=== PATIENT | female | born 1945 | race Caucasian/White ===

== ENCOUNTER 2016-10-23 13:13 | Outpatient (CLI) | payer MEDICARE, OTHER ==
[2016-10-23 14:17] LABS: eGFR (African) > 60; eGFR (Non-African) > 60
== END 2016-10-23 13:14 ==
LOC: LAB 13:13
PROVIDERS: ATTEND Clinical Nurse Specialist Medical-Surgical
DX: M81.0 Age-related osteoporosis without current pathological fracture (principal); Z87.310 Personal history of (healed) osteoporosis fracture; R26.9 Unspecified abnormalities of gait and mobility
CPT/HCPCS: 36415; 80053; 82306

== ENCOUNTER 2017-01-31 09:00 | Outpatient (CLI) | payer MEDICARE, OTHER | END 2017-01-31 09:30 | LOC: RAD 09:00 | PROVIDERS: ATTEND Family Medicine | DX: M48.06 Spinal stenosis, lumbar region (principal) | CPT/HCPCS: 72148 ==

== ENCOUNTER 2017-02-19 12:18 | Outpatient (CLI) | payer MEDICARE, OTHER ==
[~2017-02-19 12:18] MED LIST: 0.9 % SODIUM CHLORIDE PF 10 ML VIAL IJ ONE; Lidocaine 1% 5ml(IM or SUTURE)(PAIN CLINIC) ONE; TRIAMCINOLONE ACETONID 40MG/ML VIAL ONE
--- NOTE | 2017-02-22 12:51 | CAUDAL ESI WITH FLUORO ---
SUBJECTIVE: Aranza has had an L5 laminectomy done as I look at her images under x-ray. I am going to plan to place a caudal epidural steroid injection. PROCEDURE: Caudal epidural steroid injection. DESCRIPTION OF PROCEDURE: The risks and benefits of a caudal epidural steroid injection were explained to the patient, including the risk of infection, bleeding, nerve injury, worsened pain, failure to relieve pain, spinal headache or steroid exposure risks, including hyperglycemia, hypertension, osteoporosis, and increased infectious risks. The patient understood the risks and agreed to proceed. The patient was placed on the fluoroscopy table in the prone position with a pillow underneath the abdomen. The caudal area was cleaned. AP and lateral fluoroscopic views were obtained, identifying the sacrum and sacral hiatus. The caudal epidural space was accessed from a percutaneous approach at the sacral hiatus with a 20-gauge 1- inch needle. On entering the caudal epidural space, it was verified that there was no aspiration of blood or CSF or urine. Furthermore, the needle tip location was verified with lateral and AP fluoroscopic views. Omnipaque 240 myelogram dye was injected through the needle. The distribution of the dye was noted to be within the desired distribution within the caudal epidural space. The patient did report some reproduction of pain symptoms; this reproduction of symptoms was short-lived. At this point, triamcinolone acetate and 1% lidocaine was injected into the caudal epidural space. The stylette was replaced in the needle and the needle was subsequently removed from the back. The patient tolerated the procedure without adverse sequelae. The sacral area was cleaned and a bandage was applied over the injection site. The patient was then monitored for 20 minutes following the procedure, during which time the vital signs remained stable and no adverse sequelae were noted or reported. The patient was discharged home with a route delivery service driver and was in good condition on discharge. ASSESSMENT: 1. Severe L4-L5 spinal stenosis. 2. Lumbosacral radiculitis. PLAN: Caudal epidural steroid injection. FOLLOW UP: Patient is to call for complications or worsened pain. cc: Dr. Emiliano SCALES
--- NOTE | 2017-02-22 14:11 | HISTORY AND PHYSICAL REPORT ---
REFERRING PHYSICIAN: Dr. Emiliano Mendosa Dear Emiliano: HISTORY OF PRESENT ILLNESS: I had the opportunity of seeing Aranza Ghosh today as an outpatient at [facility]. As you are aware, Aranza is a very nice 72-year-old white female with some mild dementia who presents with a chief complaint of back and bilateral leg pain consistent with neurogenic claudication. She was apparently treated by my partner, Vladimir Cárdenas, 2 years ago with epidural injections and subsequently saw Dr. Zhao and surgical decompression was elected against for reasons of worsening dementia and her more advanced age. She says that she did well for a while following the injection, although Dr. Cárdenas's note seems to describe that she had not gotten a lot of improvement after 2 injections at the L4-L5 level. At this point, her MRI supports severe spinal stenosis at L4-L5 and I am planning on placing a caudal epidural steroid injection today under fluoroscopy and see how she does. PAST MEDICAL HISTORY: 1. Vision problems. 2. Hypertension. 3. Arthritis. 4. Dementia. 5. Urinary frequency. PAST SURGICAL HISTORY: 1. Lumbar laminectomy. 2. Lumbar diskectomy. 3. Surgery for an arm fracture. The patient does not report any other surgeries. CURRENT MEDICATION LIST: 1. Benazepril 10 mg daily. 2. HCTZ 12.5 mg daily. 3. Donepezil 10 mg daily. 4. Amlodipine 2.5 mg daily. 5. Aleve twice daily. ALLERGIES: No known drug allergies. SOCIAL HISTORY: Patient denies tobacco and alcohol use. Reports that she has had recreational drug use in the past. Patient has been for 51 years. She lives with her . She has 5 children. 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 She went to school through the 12th grade. She is not currently employed. She retired in 2008. FAMILY HISTORY: Positive for heart attack in patient's father. Diabetes in patient's sibling. REVIEW OF SYSTEMS: Positive for weight loss. Treatment for the current pain problems include back surgery and injections by Dr. Vladimir Cárdenas a couple of years ago which provided very little pain relief. PHYSICAL EXAMINATION: General: She is a thin white female in no apparent distress. She is awake and alert and delightful to talk to. Vital Signs: BP: 142/60, P: 74, R: 18, oxygen saturation is 93% on room air. HEENT: Pupils are equal, round, and reactive to light and accommodation. Extraocular movements intact. No facial droop. Neck: There is full range of motion of the cervical spine. No evidence of adenopathy. Thyroid is nontender, no enlarged. Carotids are without bruits. Chest: Clear to auscultation bilaterally. Normal. Chest excursion. Heart: Regular rate and rhythm without murmur. Abdomen: Benign. Normoactive bowel sounds. Motor/sensory: Intact in the upper and lower extremities. Moves all extremities freely. Back: There are normal cervical, thoracic and lumbar curvatures. There are negative sacroiliac joint findings bilaterally. No evidence of pain or tenderness over the facet joints. Negative piriformis bilaterally. Negative straight leg raise. No evidence of dermatomal weakness or numbness in the lower extremities. Bilateral negative femoral nerve stretch. Patellar tendons are 2+ and equal bilaterally. ASSESSMENT: Severe L4-L5 spinal stenosis. PLAN: Plan for a caudal epidural steroid injection under fluoroscopy. She will follow up next month. Dr. Mendosa, thank you for the opportunity to take part in the care of this nice lady. I appreciate the opportunity to take part in the care of your patients. cc: Dr. Emiliano SCALES
== END 2017-02-19 12:20 ==
LOC: OUT 12:18
PROVIDERS: ATTEND Anesthesiology Pain Medicine
DX: M48.06 Spinal stenosis, lumbar region (principal); M54.17 Radiculopathy, lumbosacral region
CPT/HCPCS: J3301; Q9966; 62323; 99213; G0463

== ENCOUNTER 2017-04-19 09:03 | Outpatient (CLI) | payer MEDICARE, OTHER ==
[~2017-04-19 09:03] MED LIST changes: -0.9 % SODIUM CHLORIDE PF 10 ML VIAL IJ ONE; +BUPIVACAINE HCL/PF 2.5 MG/ML 10ML VIAL IV ONE
--- NOTE | 2017-04-19 10:46 | LUMBAR TFESI ---
SUBJECTIVE: Ms. Ghosh follows up with me today. She continues with some left-sided leg pain. Her says she is better, however, her symptoms are still present with pain down the left leg. She has left L4 radiculitis. She did well with previous L4 transforaminal injection and not as well with a caudal epidural steroid injection. At this point, I am going to recommend repeating a left L4 transforaminal injection today under fluoroscopy. I will have this nice lady follow up in about 8 weeks. PROCEDURE: Left L4 transforaminal epidural steroid injection with fluoroscopic guidance. DESCRIPTION OF PROCEDURE: The risks and benefits were discussed with the patient including the risks of infection, bleeding, nerve injury, and headache, as well as the risks of steroid exposure causing hyperglycemia, hypertension, osteoporosis, or increased infectious risk. The patient understood these risks and agreed to proceed. Consent was obtained. The patient was placed in the prone position on the fluoroscopy table with a pillow underneath the abdomen to afford anterior flexion of the lumbar spine. The low back was cleaned and a sterile drape was applied. AP, lateral and oblique fluoroscopic views were obtained identifying the L4 vertebral body and L4 transverse process. An oblique view of the transverse process and pedicles was obtained. A 23-gauge, Quincke tip 3.5 spinal needle was advanced under direct-beam (barrel view) fluoroscopic guidance until the tip contacted the superior-most aspect of the left L5 superior articulating process. The needle was then directed superiorly and medially a few millimeters towards the intervertebral foramen. A lateral fluoroscopic view was obtained and the needle was advanced into the inferior/anterior aspect of the L4 neural foramen (L4-L5 intervertebral foramen) epidural space. It was verified that there was no aspiration of CSF or blood. Omnipaque 240 myelogram dye was injected through the needle. The dye was noted to course in the desired distribution within the lumbar foramen epidural space. The medications were injected into the epidural space. The stylet was replaced in the needle and the needle was removed from the back. The patient tolerated the procedure well. The back was cleaned and a bandage was applied over the injection site. The patient was monitored for 20 minutes following the procedure. During this time the vital signs remained stable and the patient experienced no adverse sequelae. The patient was discharged home in good condition. ASSESSMENT: Lumbar intervertebral disk disorder with radicular pain. PLAN: Left L4 transforaminal epidural steroid injection with fluoroscopic guidance. FOLLOWUP: Return to clinic if problems develop or worsen. Follow up in [address] Mendosa, thank you again for allowing me to take part in the care of this nice lady. cc: Dr. Emiliano SCALES
== END 2017-04-19 09:04 ==
LOC: OUT 09:03
PROVIDERS: ATTEND Anesthesiology Pain Medicine
DX: M51.86 Other intervertebral disc disorders, lumbar region (principal); M54.16 Radiculopathy, lumbar region
CPT/HCPCS: J3301; J3490; 64483; 99213; G0463

== ENCOUNTER 2017-06-29 13:26 | Outpatient (CLI) | payer MEDICARE, OTHER ==
[~2017-06-29 13:26] MED LIST changes: +LIDOCAINE HCL/PF 2% 100 MG/5 ML VIAL IJ ONE; -Lidocaine 1% 5ml(IM or SUTURE)(PAIN CLINIC) ONE
--- NOTE | 2017-06-30 13:43 | LUMBAR TFESI ---
SUBJECTIVE: Ms. Ghosh follows up with me today with recurrent L4 radiculitis. I gave her an injection in April and she said that she got significant relief. Her tells me that the symptoms are returning primarily when she ambulates. She complains of left leg pain. She has multi-level disk disease and a large disk protrusion at L3-L4, L4-L5, and L5-S1. She has pain over the L4 dermatome today on the left side. Plan to repeat left L4 transforaminal injection under fluoroscopic guidance for left sided disk protrusion with radiculitis. PROCEDURE: Left L4 lumbar transforaminal epidural steroid injection with fluoroscopic guidance. DESCRIPTION OF PROCEDURE: The risks and benefits were discussed with the pt. including the risks of infection, bleeding, nerve injury, and headache, as well as the risks of steroid exposure causing hyperglycemia, hypertension, osteoporosis, or increased infectious risk. The patient understood these risks and agreed to proceed. Consent was obtained. The patient was placed in the prone position on the fluoroscopy table with a pillow underneath the abdomen to afford anterior flexion of the lumbar spine. The low back was cleaned and a sterile drape was applied. AP, lateral and oblique fluoroscopic views were obtained identifying the [id number] body and L4 transverse process. An oblique view of the transverse process and pedicles was obtained. A 23-gauge Quincke tip, 3.5 spinal needle was advanced under direct-beam (barrel view) fluoroscopic guidance until the tip contacted the superior-most aspect of the left L4 superior articulating process. The needle was then directed superiorly and medially a few millimeters towards the intervertebral foramen. A lateral fluoroscopic view was obtained and the needle was advanced into the inferior/anterior aspect of the L4 neural foramen (L4-L5 intervertebral foramen) epidural space. It was verified that there was no aspiration of CSF or blood. Omnipaque 240 myelogram dye was injected through the needle. The dye was noted to course in the desired distribution within the lumbar foramen epidural space. The medication was injected into the epidural space. The stylet was replaced in the needle and the needle was removed from the back. The patient tolerated the procedure well. The back was cleaned and a bandage was applied over the injection site. The patient was monitored for 20 minutes following the procedure. During this time the vital signs remained stable and the patient experienced no adverse sequelae. The patient was discharged home in good condition. ASSESSMENT: Lumbar radiculitis/neuritis. PLAN: Left L4 lumbar transforaminal epidural steroid injection with fluoroscopic guidance. I will have her follow up with me if her symptoms should not improve. cc: Dr. Emiliano SCALES
== END 2017-06-29 13:27 ==
LOC: OUT 13:26
PROVIDERS: ATTEND Anesthesiology Pain Medicine
DX: M51.16 Intervertebral disc disorders with radiculopathy, lumbar region (principal)
CPT/HCPCS: 64483; 99214; G0463; J2001; J3301; J3490; Q9966

== ENCOUNTER 2017-09-28 09:11 | Outpatient (CLI) | payer MEDICARE, OTHER ==
[~2017-09-28 09:11] MED LIST changes: -LIDOCAINE HCL/PF 2% 100 MG/5 ML VIAL IJ ONE; +Lidocaine 1% 5ml(IM or SUTURE)(PAIN CLINIC) ONE
--- NOTE | 2017-09-28 13:41 | LUMBAR TFESI ---
SUBJECTIVE: Ms. Ghosh follows up today with recurrent left L4 radiculitis. She did very well with an L4 transforaminal in the past. She is having some increased confusion and dementia. She is in an assisted living facility at this point. I am going to plan on repeating an L4 transforaminal and following her up in 3 or 4 months. PROCEDURE: L4 lumbar transforaminal epidural steroid injection with fluoroscopic guidance. DESCRIPTION OF PROCEDURE: The risks and benefits were discussed with the patient including the risks of infection, bleeding, nerve injury, and headache, as well as the risks of steroid exposure causing hyperglycemia, hypertension, osteoporosis, or increased infectious risk. The patient understood these risks and agreed to proceed. Consent was obtained. The patient was placed in the prone position on the fluoroscopy table with a pillow underneath the abdomen to afford anterior flexion of the lumbar spine. The low back was cleaned and a sterile drape was applied. AP, lateral and oblique fluoroscopic views were obtained identifying the L4 vertebral body and L4 transverse process. An oblique view of the transverse process and pedicles was obtained. A 23-gauge Quincke tip, 3.5 spinal needle was advanced under direct-beam (barrel view) fluoroscopic guidance until the tip contacted the superior-most aspect of the left L5 superior articulating process. The needle was then directed superiorly and medially a few millimeters towards the intervertebral foramen. A lateral fluoroscopic view was obtained and the needle was advanced into the inferior/anterior aspect of the L4 neural foramen (L4-L5 intervertebral foramen) epidural space. It was verified that there was no aspiration of CSF or blood. Omnipaque 240 myelogram dye was injected through the needle. The dye was noted to course in the desired distribution within the lumbar foramen epidural space. The medication was injected into the epidural space. The stylet was replaced in the needle and the needle was removed from the back. The patient tolerated the procedure well. The back was cleaned and a bandage was applied over the injection site. The patient was monitored for 20 minutes following the procedure. During this time the vital signs remained stable and the patient experienced no adverse sequelae. The patient was discharged home in good condition. ASSESSMENT: 1. Lumbar radiculitis at L4 dermatome. 2. Lumbar stenosis. PLAN: L4 lumbar transforaminal epidural steroid injection under fluoroscopic guidance. FOLLOWUP: Return to clinic if problems develop or worsen. cc: Dr. Emiliano SCALES
== END 2017-09-28 09:12 ==
LOC: OUT 09:11
PROVIDERS: ATTEND Anesthesiology Pain Medicine
DX: M54.16 Radiculopathy, lumbar region (principal); M48.061 Spinal stenosis, lumbar region without neurogenic claudication
CPT/HCPCS: J3301; J3490; Q9966; 62323; G0463

== ENCOUNTER 2017-12-21 08:09 | Outpatient (CLI) | payer MEDICARE, OTHER ==
[2017-12-21] MEDS ORDERED: BUPIVACAINE HCL/PF 2.5 MG/ML 10ML VIAL IV ONE (08:10)
[2017-12-21] MEDS ORDERED: TRIAMCINOLONE ACETONID 40MG/ML VIAL ONE (08:10)
[2017-12-21] MEDS ORDERED: Lidocaine 1% 5ml(IM or SUTURE)(PAIN CLINIC) ONE (08:10)
--- NOTE | 2017-12-21 13:49 | LUMBAR TFESI ---
SUBJECTIVE: Ms. Ghosh follows up with me today at [facility]. This is a 72-year-old white female with a history of a previous lumbar decompressive surgery with an L4-L5 and L5-S1 laminotomy. She has recurrent left lower extremity pain. The last time I saw her, it was over L4 and L5 dermatomal distributions consistent with significant degenerative disease of the lumbar spine and neural foraminal stenosis. An L4 transforaminal has relieved the symptoms over the anterior thigh. She is still having posterior leg symptoms and lateral calf consistent with L5 radiculitis. I talked to her today about placing a left L5 transforaminal injection under fluoroscopy and I am going to dispense information on a spinal cord stimulator, as this may be a good solution for chronic recurrent leg pain for her placed in silent (burst mode) and the stimulator could provide significant relief and not need to be adjusted. To this extent, I am going to provide her with the information and plan on placing a left L5 transforaminal injection today for palliation. PROCEDURE: Left L5 transforaminal epidural steroid injection with fluoroscopic guidance. DESCRIPTION OF PROCEDURE: The risks and benefits were discussed with the patient including the risks of infection, bleeding, nerve injury, and headache, as well as the risks of steroid exposure causing hyperglycemia, hypertension, osteoporosis, or increased infectious risk. The patient understood these risks and agreed to proceed. Consent was obtained. The patient was placed in the prone position on the fluoroscopy table with a pillow underneath the abdomen to afford anterior flexion of the lumbar spine. The low back was cleaned and a sterile drape was applied. AP, lateral and oblique fluoroscopic views were obtained identifying the L5 vertebral body and L5 transverse process. An oblique view of the transverse process and pedicles was obtained. A spinal needle was advanced under direct- beam (barrel view) fluoroscopic guidance until the tip contacted the superior- most aspect of the left S1 superior articulating process. The needle was then directed superiorly and medially a few millimeters towards the intervertebral foramen. A lateral fluoroscopic view was obtained and the needle was advanced into the inferior/anterior aspect of the L5 neural foramen (L4-L5 intervertebral foramen) epidural space. It was verified that there was no aspiration of CSF or blood. Omnipaque 240 myelogram dye was injected through the needle. The dye was noted to course in the desired distribution within the lumbar foramen epidural space. The medication was injected into the epidural space. The stylet was replaced in the needle and the needle was removed from the back. The patient tolerated the procedure well. The back was cleaned and a bandage was applied over the injection site. The patient was monitored for 20 minutes following the procedure. During this time the vital signs remained stable and the patient experienced no adverse sequelae. The patient was discharged home in good condition. ASSESSMENT: 1. Lumbar intervertebral disc disorder with radicular pain. 2. Lumbar radiculitis. 3. History of previous lumbar decompressive surgery. PLAN: Left L5 transforaminal epidural steroid injection with fluoroscopic guidance. FOLLOWUP: Return to clinic if problems develop or worsen. cc: Dr. Emiliano SCALES
== END 2017-12-21 08:10 ==
LOC: OUT 08:09
PROVIDERS: ATTEND Anesthesiology Pain Medicine
DX: M51.16 Intervertebral disc disorders with radiculopathy, lumbar region (principal)
CPT/HCPCS: 62323; 99213; G0463; J3301; J3490; Q9966

== ENCOUNTER 2018-03-29 08:14 | Outpatient (CLI) | payer MEDICARE, OTHER ==
--- NOTE | 2018-04-03 10:20 | PAIN CLINIC PROGRESS NOTES ---
REASON FOR VISIT: Ms. Ghosh presents today with return of acute left lower extremity pain associated with a disc protrusion and L5 radiculitis with L4-L5 disc protrusion in the past. Her symptoms were markedly improved following a transforaminal injection but now they have returned. She is acutely ill today and she has an upper respiratory infection. PLAN: I recommended she see her primary care physician, and I will follow her up at my next appointment for a lumbar transforaminal injection under fluoroscopy. She and her are in agreement, and we will follow her up in the near future. cc: Dr. Payam SCALES
== END 2018-03-29 08:16 ==
LOC: OUT 08:14
PROVIDERS: ATTEND Anesthesiology Pain Medicine
DX: M79.605 Pain in left leg (principal); M51.16 Intervertebral disc disorders with radiculopathy, lumbar region; J06.9 Acute upper respiratory infection, unspecified
CPT/HCPCS: 99213; G0463

== ENCOUNTER 2018-05-24 07:59 | Outpatient (CLI) | payer MEDICARE, OTHER ==
[2018-05-24] MEDS ORDERED: BUPIVACAINE HCL/PF 5 MG/ML 10ML VIAL IV ONE (09:08)
[2018-05-24] MEDS ORDERED: TRIAMCINOLONE ACETONID 40MG/ML VIAL ONE (09:08)
--- NOTE | 2018-05-24 10:46 | LUMBAR TFESI ---
SUBJECTIVE: Ms. Ghosh is seen today with recurrent left-sided low back pain. She has a large osteophyte associated with facet ligamentum flavum hypertrophy at L4-L5 resulting in relatively severe lateral recess stenosis. She also has a left- sided disc protrusion at L5-S1 which enters the left L5 neural foramen. She has done well with a transforaminal injection. She is now over an upper respiratory infection, and she presents today with left low back and hip pain for a left lumbar transforaminal epidural injection which we have done successfully to relieve her pain from time to time. PROCEDURE: Left L5 transforaminal epidural steroid injection with fluoroscopic guidance. DESCRIPTION OF PROCEDURE: The risks and benefits were discussed with the patient including the risks of infection, bleeding, nerve injury, and headache, as well as the risks of steroid exposure causing hyperglycemia, hypertension, osteoporosis, or increased infectious risk. The patient understood these risks and agreed to proceed. Consent was obtained. The patient was placed in the prone position on the fluoroscopy table with a pillow underneath the abdomen to afford anterior flexion of the lumbar spine. The low back was cleaned and a sterile drape was applied. AP, lateral and oblique fluoroscopic views were obtained identifying the L5 vertebral body and L5 transverse process. An oblique view of the transverse process and pedicles was obtained. A spinal needle was advanced under direct-beam (barrel view) fluoroscopic guidance until the tip contacted the superior-most aspect of the left S1 superior articulating process. The needle was then directed superiorly and medially a few millimeters towards the intervertebral foramen. A lateral fluoroscopic view was obtained and the needle was advanced into the inferior/anterior aspect of the L5 neural foramen (L5-S1 intervertebral foramen) epidural space. It was verified that there was no aspiration of CSF or blood. Omnipaque 240 myelogram dye was injected through the needle. The dye was noted to course in the desired distribution within the lumbar foramen epidural space. Then the medication was injected into the epidural space. The stylet was replaced in the needle and the needle was removed from the back. The patient tolerated the procedure well. The back was cleaned and a bandage was applied over the injection site. The patient was monitored for 20 minutes following the procedure. During this time the vital signs remained stable and the patient experienced no adverse sequelae. The patient was discharged home in good condition. ASSESSMENT: 1. Lumbar radiculitis/neuritis. 2. Lumbar stenosis with neurogenic claudication. PLAN: Left L5 transforaminal epidural steroid injection with fluoroscopic guidance. FOLLOWUP: Return to clinic if problems develop or worsen. cc: Dr. Payam SCALES
== END 2018-05-24 08:00 ==
LOC: OUT 07:59
PROVIDERS: ATTEND Anesthesiology Pain Medicine
DX: M54.16 Radiculopathy, lumbar region (principal); M48.062 Spinal stenosis, lumbar region with neurogenic claudication
CPT/HCPCS: J3301; J3490; Q9966; 64483; 99213; G0463